=== PATIENT | male | born 1965 | race Caucasian/White ===

== ENCOUNTER 2023-12-21 05:18 | Day surgery (SDC) | payer BC ==
[2023-12-21] VITALS (14 sets, daily range): BP systolic 94–143; BP diastolic 62–89; PULSE 46–73; TEMP 97.4–98.6
[~2023-12-21] VITALS: Ht 177.8 cm; Wt 86.7 kg
[~2023-12-21 05:18] MED LIST: LR 1,000 ML IV SCH
[2023-12-21] MEDS ORDERED: HCTZ12.5TAB PO (06:08)
[2023-12-21] MEDS ORDERED: PRINIVIL40 MG PO (06:08)
[2023-12-21] MEDS ORDERED: Midazolam 2 MG/2 ML VIAL ONE (06:23)
[2023-12-21] MEDS ORDERED: Ondansetron 4 MG/2 ML VIAL ONE (06:23)
[2023-12-21] MEDS ORDERED: Lidocaine PF 2% (20 MG/ML) 5 ML VIAL ONE (06:23)
[2023-12-21] MEDS ORDERED: dexAMETHasone 10 MG/ML VIAL ONE (06:23)
--- NOTE | 2023-12-21 06:49 | NUR ---
PATIENT ADMITTED TO ROOM 8 AMBULATORY AND VOICES UNDERSTANDING OF SURGERY AND CONSENTS SIGNED. IVF INFUSING AND PATIENT IS READIED FOR SURGERY. CALL LIGHT IN REACH. FAMILY IN ROOM.
[2023-12-21] MEDS ORDERED: HYDROmorphone 1 MG/1 ML SYRINGE [PACU/SDC ONLY] IV PRN (07:00)
[2023-12-21] MEDS ORDERED: Ondansetron 4 MG/2 ML VIAL IV PRN ×2 (07:00→11:00)
[2023-12-21] MEDS ORDERED: hydrALAZINE 20 MG/ML 1 ML VIAL IV PRN (07:00)
[2023-12-21] MEDS ORDERED: droPERidol 2.5 MG/ML 2 ML VIAL IV PRN (07:00)
[2023-12-21] MEDS ORDERED: fentaNYL 50 MCG/ML 1 ML SYRINGE/VIAL [PACU/SDC ONLY] IV PRN (07:00)
[2023-12-21] MEDS ORDERED: Tranexamic Acid 1,000 MG/10 ML VIAL ONE (07:36)
[2023-12-21] MEDS ORDERED: Morphine 4 MG/ML VIAL SQ ONE (08:11)
[2023-12-21] MEDS ORDERED: Ketorolac 30 MG/ML VIAL IV\\IM ONE (08:11)
[2023-12-21] MEDS ORDERED: Phenylephrine 10 MG/ML VIAL ONE (08:42)
[2023-12-21] MEDS ORDERED: Mag/Al Hydrox/Simeth Susp 30 ML CUP PO PRN (11:00)
[2023-12-21] MEDS ORDERED: Morphine 4 MG/ML VIAL IV PRN (11:00)
[2023-12-21] MEDS ORDERED: Bisacodyl 5 MG TAB PO PRN (11:00)
[2023-12-21] MEDS ORDERED: oxyCODONE 5 MG TAB PO PRN (11:00)
[2023-12-21] MEDS ORDERED: Naloxone 0.4 MG/ML VIAL IV PRN (11:00)
[2023-12-21] MEDS ORDERED: Acetaminophen 500 MG TAB PO SCH (11:00)
[2023-12-21] MEDS ORDERED: Magnes Hydrox (MOM) 80 MG/ML 30 ML CUP PO PRN (11:00)
[2023-12-21] MEDS ORDERED: NS 1,000 ML IV SCH (11:00)
[2023-12-21] MEDS ORDERED: Acetaminophen 500 MG TAB PO PRN (11:00)
--- NOTE | 2023-12-21 11:35 | NUR ---
PATIENT ADMITED INTO ROOM 329 POST-OP. A&O. NOTED SOFT B/P OF 96/65, ALL OTHER VSS. NO C/O PAIN OR NAUSEA. IV FLUIDS INFUSING INTO LEFT HAND. LIQUIDS & COFFEE NOW AT BEDSIDE. LLE DSG IS CD&I WITH ACEWRAP. HEMOVAC DRAIN TO LLE WITH SCANT AMOUNTS OF BLOODY DRAINAGE NOTED. TEDS TO RLE. SCD'S TO BLE. HEAD TO TOE ASSESSMENT COMPLETE. ORIENTED TO ROOM. NO FAMILY AT BEDSIDE AT THIS TIME. CALL LIGHT IN REACH.
[2023-12-21] MEDS ORDERED: Ketorolac 15 MG/ML VIAL IV SCH (14:30)
[2023-12-21] MEDS ORDERED: ceFAZolin 2 G in Water For Injection,Sterile 20 ML IV SCH (14:30)
[2023-12-21] MEDS ORDERED: Ascorbic Acid 500 MG TAB PO SCH (21:00)
[2023-12-21] MEDS ORDERED: Sennosides/Docusate 8.6-50 MG TAB PO SCH (21:00)
[2023-12-22 01:00] VITALS: BP_SYST 115
[2023-12-22 03:01] VITALS: BP 115/75; PULSE 70; TEMP 97.5
[2023-12-22 05:00] VITALS: BP_SYST 115
--- NOTE | 2023-12-22 06:44 | NUR ---
THE PATIENT IS ALERT AND ORIENTED AND DENIES PAIN THIS MORNING. AM TYLENOL PROVIDED. THE PATIENT IS ACTIVE AND UP TO THE BATHROOM WITH MINIMAL ASSIST. THE PATIENT DENIED NEEDS OVERNIGHT. THE PATIENT IS LOOKING FORWARD TO DISCHARGING HOME TODAY.
[2023-12-22] MEDS ORDERED: NORCO 325 MG-51 TAB PO (07:29)
[2023-12-22] MEDS ORDERED: ASPIRIN 81M81 MG/TA2 PO (07:29)
[2023-12-22] MEDS ORDERED: CEPHALEXIN500 M1 PO (07:29)
[2023-12-22] MEDS ORDERED: ULTRAM 50MG TAB50 MG PO (07:29)
[2023-12-22 07:40] VITALS: BP 118/72; PULSE 62; TEMP 97.9
[2023-12-22 08:00] VITALS: BP_SYST 135
--- NOTE | 2023-12-22 08:00 | NUR ---
PATIENT IS A&O. VSS. REPORTS MINIMAL PAIN RATED AT 3/10 AND ONLY WANTS TYLENOL, GIVEN WITH AM MEDS. PATIENT ASKING TO HAVE IV OUT EARLY THIS AM FOR DISCHARGE. DC'D IV SITE AND COVERED SITE WITH GAUZE & COBAN. HEAD TO TOE ASSESSMENT COMPLETE. INDEPENDENT IN ROOM. PLAN IS TO DISCHARGE HOME TODAY AFTER SEEN BY ORTHO.
[2023-12-22] MEDS ORDERED: Magnes Hydrox (MOM) 80 MG/ML 30 ML CUP PO SCH (09:00)
[2023-12-22 11:13] VITALS: BP 135/75; PULSE 68; TEMP 98
--- NOTE | 2023-12-22 11:45 | NUR ---
PATIENT DISCHARGING HOME VIA WC TO PERSONAL VEHICLE WITH FAMILY. GAVE DISCHARGE INSTRUCTIONS, PRINTED SCRIPS, AND DISCUSSED F/U APT. DC'D HEMOVAC DRAIN AND CHANGED POST-OP LTK DSG TO 4X4 & SILK TAPE. TEDS TO BLE. IV DC'D EARLY THIS AM. PATIENT IS DRESSED, PACKED, AND DISCHARGED TO HOME.
--- NOTE | 2023-12-22 16:50 | NUR ---
magazine worker met with patient to discuss discharge planning. Patient lives in [place]. Points of contact is Nadia, mother, P# [phone], Sunil, sister, P# [phone]. PCP is Dr. Zurita, Pharmacy is [facility]. No issues affording medications. Insurance is [employer]. NO DPOA-HC, No DME and reports to be independent with ADLS. Patient has her sister ready to transport him home all he needs to do is call her. Patient has OP PT scheduled at the [facility] starting early next week. SW faxed discharge orders to [facility]. Discharge plan: Home with OP PT
[2023-12-25] MEDS ORDERED: Celecoxib 200 MG CAP PO SCH (21:00)
== END 2023-12-22 11:45 | disposition home or self-care (01) ==
LOC: SDCO 05:18 → SURG 11:44 → SDCO 12-22 11:45
DX: M17.12 Unilateral primary osteoarthritis, left knee (principal); M24.562 Contracture, left knee; M21.162 Varus deformity, not elsewhere classified, left knee; I10 Essential (primary) hypertension; Z87.891 Personal history of nicotine dependence; Z79.899 Other long term (current) drug therapy
CPT/HCPCS: OP; A9284; C1713; C1776; J0688; J0690; J1100; J1580; J1885; J2250; J2270; J2371; J2405; J2704; J2795; J7120